=== PATIENT | male | born 1980 | race Two or more races ===

== ENCOUNTER 2023-01-13 18:33 | Inpatient (IN) | payer OTHER ==
[2023-01-13 19:13] VITALS: BMI 25.1
[2023-01-13] MEDS ORDERED: IBUPROFEN 600 MG TABLET (FP) PO PRN (21:21)
[2023-01-13] MEDS ORDERED: guaiFENesin 600 MG TABLET.ER (FP) PO PRN (21:21)
[2023-01-13] MEDS ORDERED: NALOXONE HCL (KLOXXADO) 8 MG SPRAY NS PRN (21:21)
[2023-01-13] MEDS ORDERED: DICYCLOMINE HCL 10 MG CAPSULE PO PRN (21:21)
[2023-01-13] MEDS ORDERED: BENZOCAINE/MENTHOL (CHLORASEPTIC ) LOZENGE MM PRN (21:21)
[2023-01-13] MEDS ORDERED: BENZONATATE 200 MG CAPSULE PO PRN (21:21)
[2023-01-13] MEDS ORDERED: ONDANSETRON *ODT* 4 MG TABLET SL PRN (21:21)
[2023-01-13] MEDS ORDERED: MAGNESIUM HYDROX 2400MG/30ML ORAL SUSPENSION 30 ML CUP PO PRN (21:21)
[2023-01-13] MEDS ORDERED: chlordiazePOXIDE HCL 25 MG CAPSULE PO PRN (21:21)
[2023-01-13] MEDS ORDERED: MAG HYDROX/AL HYDROX/SIMETH 30 ML UNIT-DOSE CUP PO PRN (21:21)
[2023-01-13] MEDS ORDERED: POLYETHYLENE GLYCOL (HEALTHYLAX) 3350 17 GM PACKET PO PRN (21:21)
[2023-01-13] MEDS ORDERED: NALOXONE HCL 0.4 MG/ML VIAL IM PRN (21:21)
[2023-01-13] MEDS ORDERED: NICOTINE 10 MG CARTRIDGE (INHALER) IH PRN (21:21)
[2023-01-13] MEDS ORDERED: IBUPROFEN 400 MG TABLET (FP) PO PRN (21:21)
[2023-01-13] MEDS ORDERED: BISMUTH SUBSALICYLATE 524 MG/30 ML PO PRN (21:21)
[2023-01-13] MEDS ORDERED: MELATONIN 5 MG TABLETS PO SCH (22:00)
[2023-01-13] MEDS ORDERED: chlordiazePOXIDE HCL 25 MG CAPSULE ONE (22:38)
[2023-01-13] MEDS ORDERED: IBUPROFEN 600 MG TABLET (FP) PO ONE (22:38)
[2023-01-13] MEDS: chlordiazePOXIDE HCL 25 MG CAPSULE PO SCH (22:43)
[2023-01-13] MEDS: THIAMINE HCL 100 MG TABLET (FP) PO SCH (22:43)
[2023-01-14] MEDS: chlordiazePOXIDE HCL 25 MG CAPSULE PO SCH ×4 (05:35→22:06)
[2023-01-14] MEDS: ACETAMINOPHEN 325 MG TABLET (FP) PO PRN ×2 (05:36→17:32)
[2023-01-14] MEDS: LOPERAMIDE HCL 2 MG CAPSULE PO PRN (10:45)
[2023-01-14] MEDS: PRENATAL VITAMINS W/ FOLIC ACID TABLET (FP) PO SCH (10:48)
[2023-01-14] MEDS: NICOTINE 14 MG/24 HOURS TOPICAL PATCH TD SCH (10:48)
[2023-01-14 10:50] LABS: POTASSIUM 3.5 mmol/L (3.5-5.1)
[2023-01-14 10:55] LABS: ALBUMIN 3.6 g/dl (3.4-5.0); BLOOD UREA NITROGEN 18.5 mg/dL (7-18); CALCIUM 8.9 mg/dL (8.5-10.1)
[2023-01-14 10:58] LABS: CREATININE 0.9 mg/dL (0.55-1.3)
[2023-01-14 11:00] LABS: BILIRUBIN,TOTAL 0.8 mg/dL (0.2-1)
[2023-01-14 11:15] LABS: HEMATOCRIT 43.3 % (35.4-49); HEMOGLOBIN 14.9 GM/dL (11.7-16.9); MCH 31.3 pg (25.7-33.7); MCHC 34.5 g/dl (32.0-35.9); MEAN CELL VOLUME 90.7 fl (80-96); MEAN PLT VOLUME 6.7 fl (7.5-11.1); PLATELET COUNT 233 10^3/uL (134-434); RBC 4.78 M/mm3 (4.00-5.60); RDW 15.2 % (11.9-15.9)
[2023-01-14] MEDS: hydrOXYzine PAMOATE 25 MG CAPSULE (FP) PO PRN ×2 (12:25→20:26)
[2023-01-14] MEDS: FOLIC ACID 1 MG TABLET (FP) PO SCH (12:54)
[2023-01-14] MEDS: APIXABAN 5 MG TABLET PO SCH ×2 (12:54→22:06)
[2023-01-14] MEDS ORDERED: traZODone HCL 50 MG TABLET (FP) PO SCH (22:00)
[2023-01-14] MEDS: traZODone HCL 100 MG TABLET (FP) PO SCH (22:06)
[2023-01-14] MEDS: THIAMINE HCL 100 MG TABLET (FP) PO SCH (22:06)
[2023-01-15] MEDS: chlordiazePOXIDE HCL 25 MG CAPSULE PO SCH ×4 (05:27→22:14)
[2023-01-15] MEDS: hydrOXYzine PAMOATE 25 MG CAPSULE (FP) PO PRN (05:28)
[2023-01-15] MEDS: FOLIC ACID 1 MG TABLET (FP) PO SCH (10:02)
[2023-01-15] MEDS: APIXABAN 5 MG TABLET PO SCH ×2 (10:02→22:13)
[2023-01-15] MEDS: PRENATAL VITAMINS W/ FOLIC ACID TABLET (FP) PO SCH (10:02)
[2023-01-15] MEDS: NICOTINE 14 MG/24 HOURS TOPICAL PATCH TD SCH (10:03)
[2023-01-15] MEDS: LOPERAMIDE HCL 2 MG CAPSULE PO PRN (17:28)
[2023-01-15] MEDS: traZODone HCL 100 MG TABLET (FP) PO SCH (22:13)
[2023-01-15] MEDS: THIAMINE HCL 100 MG TABLET (FP) PO SCH (22:13)
[2023-01-15] MEDS: ACETAMINOPHEN 325 MG TABLET (FP) PO PRN (22:15)
[2023-01-16] MEDS ORDERED: chlordiazePOXIDE HCL 10 MG CAPSULE PO PRN
[2023-01-16] MEDS: chlordiazePOXIDE HCL 10 MG CAPSULE PO SCH ×4 (05:43→22:08)
[2023-01-16] MEDS: hydrOXYzine PAMOATE 25 MG CAPSULE (FP) PO PRN (05:44)
[2023-01-16] MEDS ORDERED: ACETAMINOPHEN 325 MG TABLET (FP) PO ONE (10:09)
[2023-01-16] MEDS: APIXABAN 5 MG TABLET PO SCH ×2 (10:10→22:08)
[2023-01-16] MEDS: NICOTINE 14 MG/24 HOURS TOPICAL PATCH TD SCH (10:11)
[2023-01-16] MEDS: PRENATAL VITAMINS W/ FOLIC ACID TABLET (FP) PO SCH (10:11)
[2023-01-16] MEDS: FOLIC ACID 1 MG TABLET (FP) PO SCH (10:11)
[2023-01-16] MEDS: ACETAMINOPHEN 325 MG TABLET (FP) PO PRN (10:12)
[2023-01-16] MEDS: METHOCARBAMOL 500 MG TABLET PO PRN (17:16)
[2023-01-16] MEDS: THIAMINE HCL 100 MG TABLET (FP) PO SCH (22:08)
[2023-01-16] MEDS: traZODone HCL 100 MG TABLET (FP) PO SCH (22:08)
[2023-01-17] MEDS: chlordiazePOXIDE HCL 10 MG CAPSULE PO SCH ×2 (05:37→17:26)
[2023-01-17] MEDS: METHOCARBAMOL 500 MG TABLET PO PRN ×2 (08:12→22:14)
[2023-01-17] MEDS: ACETAMINOPHEN 325 MG TABLET (FP) PO PRN ×2 (08:12→17:28)
[2023-01-17] MEDS: PRENATAL VITAMINS W/ FOLIC ACID TABLET (FP) PO SCH (10:14)
[2023-01-17] MEDS: FOLIC ACID 1 MG TABLET (FP) PO SCH (10:14)
[2023-01-17] MEDS: APIXABAN 5 MG TABLET PO SCH ×2 (10:14→22:14)
[2023-01-17] MEDS: NICOTINE 14 MG/24 HOURS TOPICAL PATCH TD SCH (10:17)
[2023-01-17] MEDS: GABAPENTIN 100 MG CAPSULE PO SCH ×2 (14:10→22:14)
[2023-01-17 21:21] VITALS: RESP 18
[2023-01-17] MEDS: traZODone HCL 100 MG TABLET (FP) PO SCH (22:14)
[2023-01-17] MEDS: THIAMINE HCL 100 MG TABLET (FP) PO SCH (22:14)
[2023-01-18] MEDS ORDERED: chlordiazePOXIDE HCL 10 MG CAPSULE PO ONE (05:00)
[2023-01-18] MEDS: GABAPENTIN 100 MG CAPSULE PO SCH (05:51)
[2023-01-18 06:48] VITALS: BP 107/64; PULSE 77; TEMP 97.3
[2023-01-18] MEDS: METHOCARBAMOL 500 MG TABLET PO PRN (06:59)
[2023-01-18] MEDS: ACETAMINOPHEN 325 MG TABLET (FP) PO PRN (06:59)
== END 2023-01-18 08:23 | disposition home or self-care (01) | DRG 775 ==
LOC: YASAS 18:33 → Y3N 22:01
PROVIDERS: ADMIT Allergy & Immunology; ATTEND Surgery
PROC: HZ2ZZZZ Detoxification Services for Substance Abuse Treatment (ICD-10-PCS; principal; 2023-01-13)
DX: F10.230 Alcohol dependence with withdrawal, uncomplicated (principal); F12.20 Cannabis dependence, uncomplicated; F17.210 Nicotine dependence, cigarettes, uncomplicated; F19.282 Other psychoactive substance dependence with psychoactive substance-induced sleep disorder; F41.9 Anxiety disorder, unspecified; F32.A Depression, unspecified; F43.10 Post-traumatic stress disorder, unspecified; Z62.810 Personal history of physical and sexual abuse in childhood; Z86.718 Personal history of other venous thrombosis and embolism; Z79.01 Long term (current) use of anticoagulants
CPT/HCPCS: 36415; 80053; 85027; 86780; 87635; 87811; 93005; 93010

== ENCOUNTER 2023-01-27 11:27 | Inpatient (IN) | payer OTHER ==
[2023-01-27 12:11] VITALS: BMI 23.5
[2023-01-27] MEDS ORDERED: FOLIC ACID 1 MG TABLET (FP) PO SCH (12:45)
[2023-01-27] MEDS ORDERED: APIXABAN 5 MG TABLET PO SCH (12:45)
[2023-01-27] MEDS ORDERED: BENZONATATE 200 MG CAPSULE PO PRN (12:50)
[2023-01-27] MEDS ORDERED: NICOTINE 10 MG CARTRIDGE (INHALER) IH PRN (12:50)
[2023-01-27] MEDS ORDERED: BENZOCAINE/MENTHOL (CHLORASEPTIC ) LOZENGE MM PRN (12:50)
[2023-01-27] MEDS ORDERED: NICOTINE POLACRILEX 2 MG GUM BUC PRN (12:50)
[2023-01-27] MEDS ORDERED: MAGNESIUM HYDROX 2400MG/30ML ORAL SUSPENSION 30 ML CUP PO PRN (12:50)
[2023-01-27] MEDS ORDERED: P-EPHED 60MG/TRIPROLIDI 2.5MG TABLET PO PRN (12:50)
[2023-01-27] MEDS ORDERED: POLYETHYLENE GLYCOL (HEALTHYLAX) 3350 17 GM PACKET PO PRN (12:50)
[2023-01-27] MEDS ORDERED: guaiFENesin 600 MG TABLET.ER (FP) PO PRN (12:50)
[2023-01-27] MEDS ORDERED: ONDANSETRON *ODT* 4 MG TABLET ONE (14:05)
[2023-01-27] MEDS: ONDANSETRON *ODT* 4 MG TABLET SL PRN (14:06)
[2023-01-27] MEDS ORDERED: APIXABAN 5 MG TABLET PO ONE (15:28)
[2023-01-27] MEDS ORDERED: FOLIC ACID 1 MG TABLET (FP) PO ONE (15:29)
[2023-01-27] MEDS: hydrOXYzine PAMOATE 25 MG CAPSULE (FP) PO PRN (15:40)
[2023-01-27] MEDS: chlordiazePOXIDE HCL 25 MG CAPSULE PO PRN (15:42)
[2023-01-27] MEDS: chlordiazePOXIDE HCL 25 MG CAPSULE PO SCH ×2 (17:38→22:01)
[2023-01-27] MEDS: DICYCLOMINE HCL 10 MG CAPSULE PO PRN (18:12)
[2023-01-27] MEDS: MAG HYDROX/AL HYDROX/SIMETH 30 ML UNIT-DOSE CUP PO PRN (18:13)
[2023-01-27] MEDS: APIXABAN 5 MG TABLET PO SCH (22:01)
[2023-01-27] MEDS: MELATONIN 5 MG TABLETS PO SCH (22:01)
[2023-01-27] MEDS: traZODone HCL 100 MG TABLET (FP) PO SCH (22:01)
[2023-01-27] MEDS: THIAMINE HCL 100 MG TABLET (FP) PO SCH (22:01)
[2023-01-27] MEDS: LOPERAMIDE HCL 2 MG CAPSULE PO PRN (22:03)
[2023-01-28] MEDS: chlordiazePOXIDE HCL 25 MG CAPSULE PO SCH ×4 (05:19→22:10)
[2023-01-28] MEDS: DICYCLOMINE HCL 10 MG CAPSULE PO PRN (05:21)
[2023-01-28] MEDS: ONDANSETRON *ODT* 4 MG TABLET SL PRN (08:28)
[2023-01-28] MEDS ORDERED: ESCITALOPRAM OXALATE 10 MG TABLET PO SCH (10:00)
[2023-01-28] MEDS: hydrOXYzine PAMOATE 25 MG CAPSULE (FP) PO PRN (10:08)
[2023-01-28] MEDS: FOLIC ACID 1 MG TABLET (FP) PO SCH (10:09)
[2023-01-28] MEDS: APIXABAN 5 MG TABLET PO SCH ×2 (10:09→22:09)
[2023-01-28] MEDS: PRENATAL VITAMINS W/ FOLIC ACID TABLET (FP) PO SCH (10:09)
[2023-01-28] MEDS: ACETAMINOPHEN 325 MG TABLET (FP) PO PRN (11:07)
[2023-01-28] MEDS: chlordiazePOXIDE HCL 25 MG CAPSULE PO PRN (14:10)
[2023-01-28] MEDS: traZODone HCL 100 MG TABLET (FP) PO SCH (22:09)
[2023-01-28] MEDS: THIAMINE HCL 100 MG TABLET (FP) PO SCH (22:09)
[2023-01-28] MEDS: GABAPENTIN 100 MG CAPSULE PO SCH (22:09)
[2023-01-28] MEDS: MELATONIN 5 MG TABLETS PO SCH (22:10)
[2023-01-29] MEDS: GABAPENTIN 100 MG CAPSULE PO SCH ×3 (05:12→22:12)
[2023-01-29] MEDS: chlordiazePOXIDE HCL 25 MG CAPSULE PO SCH ×4 (05:12→22:12)
[2023-01-29] MEDS: FOLIC ACID 1 MG TABLET (FP) PO SCH (10:17)
[2023-01-29] MEDS: APIXABAN 5 MG TABLET PO SCH ×2 (10:17→22:12)
[2023-01-29] MEDS: PRENATAL VITAMINS W/ FOLIC ACID TABLET (FP) PO SCH (10:20)
[2023-01-29] MEDS: MAG HYDROX/AL HYDROX/SIMETH 30 ML UNIT-DOSE CUP PO PRN (11:08)
[2023-01-29] MEDS ORDERED: LIDOCAINE VISCOUS 2% ORAL/TOP 15 ML UNIT-DOSE CUP MM SCH (12:00)
[2023-01-29] MEDS: LOPERAMIDE HCL 2 MG CAPSULE PO PRN (15:26)
[2023-01-29] MEDS: hydrOXYzine PAMOATE 25 MG CAPSULE (FP) PO PRN (17:20)
[2023-01-29] MEDS: THIAMINE HCL 100 MG TABLET (FP) PO SCH (22:11)
[2023-01-29] MEDS: MELATONIN 5 MG TABLETS PO SCH (22:11)
[2023-01-29] MEDS: traZODone HCL 100 MG TABLET (FP) PO SCH (22:11)
[2023-01-30] MEDS ORDERED: chlordiazePOXIDE HCL 10 MG CAPSULE PO PRN
[2023-01-30] MEDS: chlordiazePOXIDE HCL 10 MG CAPSULE PO SCH ×4 (05:35→22:11)
[2023-01-30] MEDS: GABAPENTIN 100 MG CAPSULE PO SCH ×3 (05:36→22:11)
[2023-01-30] MEDS: ACETAMINOPHEN 325 MG TABLET (FP) PO PRN (05:37)
[2023-01-30] MEDS: DICYCLOMINE HCL 10 MG CAPSULE PO PRN (08:38)
[2023-01-30] MEDS: APIXABAN 5 MG TABLET PO SCH ×2 (10:09→22:11)
[2023-01-30] MEDS: FOLIC ACID 1 MG TABLET (FP) PO SCH (10:09)
[2023-01-30] MEDS: hydrOXYzine PAMOATE 25 MG CAPSULE (FP) PO PRN ×2 (10:09→17:47)
[2023-01-30] MEDS: PRENATAL VITAMINS W/ FOLIC ACID TABLET (FP) PO SCH (10:09)
[2023-01-30] MEDS: MAG HYDROX/AL HYDROX/SIMETH 30 ML UNIT-DOSE CUP PO PRN (17:47)
[2023-01-30 20:50] VITALS: RESP 18
[2023-01-30] MEDS: traZODone HCL 100 MG TABLET (FP) PO SCH (22:11)
[2023-01-30] MEDS: MELATONIN 5 MG TABLETS PO SCH (22:11)
[2023-01-30] MEDS: THIAMINE HCL 100 MG TABLET (FP) PO SCH (22:11)
[2023-01-31] MEDS ORDERED: chlordiazePOXIDE HCL 10 MG CAPSULE PO SCH (05:00)
[2023-01-31] MEDS: GABAPENTIN 100 MG CAPSULE PO SCH (05:48)
[2023-01-31 09:11] VITALS: BP 132/82; PULSE 88; TEMP 98
[2023-01-31] MEDS: PRENATAL VITAMINS W/ FOLIC ACID TABLET (FP) PO SCH (09:44)
[2023-01-31] MEDS: FOLIC ACID 1 MG TABLET (FP) PO SCH (09:44)
[2023-01-31] MEDS: APIXABAN 5 MG TABLET PO SCH (09:44)
[2023-02-01] MEDS ORDERED: chlordiazePOXIDE HCL 10 MG CAPSULE PO ONE (05:00)
== END 2023-01-31 09:58 | disposition home or self-care (01) | DRG 775 ==
LOC: YASAS 11:27 → Y3N 14:05
PROVIDERS: ADMIT Allergy & Immunology; ATTEND Surgery
PROC: HZ2ZZZZ Detoxification Services for Substance Abuse Treatment (ICD-10-PCS; principal; 2023-01-27)
DX: F10.230 Alcohol dependence with withdrawal, uncomplicated (principal); F12.20 Cannabis dependence, uncomplicated; F17.210 Nicotine dependence, cigarettes, uncomplicated; F32.A Depression, unspecified; F41.9 Anxiety disorder, unspecified; F43.10 Post-traumatic stress disorder, unspecified; G47.00 Insomnia, unspecified; Z86.711 Personal history of pulmonary embolism; Z79.01 Long term (current) use of anticoagulants; Z86.718 Personal history of other venous thrombosis and embolism
CPT/HCPCS: 87635; 87811; Q0162